=== PATIENT | female | born 1990 | race Caucasian/White ===

== ENCOUNTER 2018-03-04 20:12 | Emergency (ER) | payer SELFPAY ==
--- NOTE | 2018-03-04 20:32 | EDM.PDOC ---
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 States she has saturated a pad within the last 1 hour. Has abdominal cramping and nausea. Denies any fever, chills, chest pain or shortness of breath. Denies any diarrhea, constipation or dysuria. She states she is 11 weeks with last menstrual period being 12/07/2017. , P: 0. She currently see Ailyn at [facility] for care. Review of systems: As per history of present illness and below otherwise all systems reviewed and negative. Past medical history: As per history of present illness and as reviewed below otherwise noncontributory. Surgical history: As per history of present illness and as reviewed below otherwise noncontributory. Social history: No reported history of drug or alcohol abuse. Family history: As per history of present illness and as reviewed below otherwise noncontributory. Physical exam: General: HEENT: Atraumatic, normocephalic, pupils equal and reactive bilaterally, negative for conjunctival pallor or scleral icterus, mucous membranes moist, throat clear, neck supple, nontender, trachea midline. No drooling or trismus noted. No meningeal signs Lungs: Clear to auscultation, breath sounds equal bilaterally, chest nontender. Heart: S1S2, regular rate and rhythm without overt murmur Abdomen: Soft, nondistended, nontender. Negative for masses or hepatosplenomegaly. Negative for costovertebral tenderness. Pelvis: Stable nontender. Genitourinary: Deferred. Rectal: Deferred. Skin: Intact, warm, dry. No lesions or rashes noted. Extremities: Atraumatic, negative for cords or calf pain. Neurovascular unremarkable. Neuro: Awake, alert, oriented. Cranial nerves II through XII unremarkable. Cerebellum unremarkable. Motor and sensory unremarkable throughout. Exam nonfocal. Notes: Ultrasound shows a single viable intrauterine , regular cardiac rate of [address] [place] [address]. + blood type. All lab work is unremarkable with the exception of a urinary tract infection which I will place her on Macrobid. Urine culture was added. She is requesting something for her nausea. I will give her a limited amount of Zofran. Encouraged her to call her primary care provider tomorrow to inform her of her emergency room visit. She does need a repeat quantitative hCG in 2 days from now. Patient is aware and agreeable to plan of care. Diagnostics: CBC, CMP, AB/Rh, OB first trimester ultrasound, UA, quantitative hCG Therapeutics: Macrobid, Zofran Impression: Threatened miscarriage UTI Plan: 1. Pelvic rest (no tampons, no sex, nothing in the vagina...) until cleared by your OBGYN. 2. Tylenol as needed for pain. Please take the antibiotic for UTI. 3. Please repeat your Quantitative HCG on 03/06/2018 (results will be sent to Mariya Robertson). 4. Please call Jonnathan in the morning to arrange an appointment for re- evaluation tomorrow. Return to the ED as needed and as discussed. Definitive disposition and diagnosis as appropriate pending reevaluation and review of above. 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 ED EXAM, GI/ABD - Physical Exam Exam: See Below (See dictation) Course - Vital Signs Last Recorded V/S: Last Vital Signs Temp 98.1 F 03/04/18 20:15 Pulse 107 H 03/04/18 21:36 Resp 16 03/04/18 21:36 BP 126/84 03/04/18 21:36 Pulse Ox 98 03/04/18 21:36 - Orders/Labs/Meds Orders: Active Orders 24 hr Category Date Time Status OB Transvaginal [US] Stat Exams 03/04/18 20:38 Taken UA W/MICROSCOPIC [URIN] Stat Lab 03/04/18 20:25 Ordered Labs: Laboratory Tests 03/04/18 03/04/18 03/04/18 Range/Units 20:25 20:43 20:43 WBC 12.53 H (4.0-11.0) K/uL RBC 4.68 (4.30-5.90) M/uL Hgb 12.8 (12.0-16.0) g/dL Hct 37.6 (36.0-46.0) % MCV 80.3 (80.0-98.0) fL MCH 27.4 (27.0-32.0) pg MCHC 34.0 (31.0-37.0) g/dL RDW Std Deviation 45.9 (28.0-62.0) fl RDW Coeff of David 16 H (11.0-15.0) % Plt Count 421 H (150-400) K/uL MPV 9.30 (7.40-12.00) fL Neut % (Auto) 68.2 (48.0-80.0) % Lymph % (Auto) 18.5 (16.0-40.0) % Gall[place] % (Auto) 9.0 (0.0-15.0) % Eos % (Auto) 3.8 (0.0-7.0) % Baso % (Auto) 0.5 (0.0-1.5) % Neut # (Auto) 8.5 H (1.4-5.7) K/uL Lymph # (Auto) 2.3 (0.6-2.4) K/uL Gallia # (Auto) 1.1 H (0.0-0.8) K/uL Eos # (Auto) 0.5 (0.0-0.7) K/uL Baso # (Auto) 0.1 (0.0-0.1) K/uL Nucleated RBC % 0.0 /100WBC Nucleated RBCs # 0 K/uL Sodium 135 L (136-145) mmol/L Potassium 3.3 L (3.5-5.1) mmol/L Chloride 103 (98-107) mmol/L Carbon Dioxide 23.5 (21.0-32.0) mmol/L BUN 4 L (7.0-18.0) mg/dL Creatinine 0.7 (0.6-1.0) mg/dL Est Cr Clr Drug Dosing 111.01 mL/min Estimated GFR (MDRD) > 60.0 ml/min Glucose 99 (74-106) mg/dL Calcium 9.1 (8.5-10.1) mg/dL Total Bilirubin 0.2 (0.2-1.0) mg/dL AST 19 (15-37) IU/L ALT 24 (14-63) IU/L Alkaline Phosphatase 50 (46-116) U/L Total Protein 7.8 (6.4-8.2) g/dL Albumin 3.6 (3.4-5.0) g/dL Globulin 4.2 H (2.0-3.5) g/dL Albumin/Globulin Ratio 0.9 L (1.3-2.8) HCG, Quant 85842.0 mIU/mL Urine Color YELLOW Urine Appearance SLT CLOUDY Urine pH 5.5 (5.0-8.0) Ur Specific [place] >= 1.030 (1.001-1.035) Urine Protein NEGATIVE (NEGATIVE) mg/dL Urine Glucose (UA) NEGATIVE (NEGATIVE) mg/dL Urine Ketones NEGATIVE (NEGATIVE) mg/dL Urine Occult Blood MODERATE (NEGATIVE) Urine Nitrite NEGATIVE (NEGATIVE) Urine Bilirubin NEGATIVE (NEGATIVE) Urine Urobilinogen 0.2 (<2.0) EU/dL Ur Leukocyte Esterase NEGATIVE (NEGATIVE) Urine RBC 3-6 (0-2/HPF) Urine WBC 10-15 (0-5/HPF) Ur Epithelial Cells MANY (NONE-FEW) Urine Bacteria 1+ H (NEGATIVE) Urine Mucus HEAVY (NONE-MOD) Blood Type 03/04/18 Range/Units 20:43 WBC (4.0-11.0) K/uL RBC (4.30-5.90) M/uL Hgb (12.0-16.0) g/dL Hct (36.0-46.0) % MCV (80.0-98.0) fL MCH (27.0-32.0) pg MCHC (31.0-37.0) g/dL RDW Std Deviation (28.0-62.0) fl RDW Coeff of David (11.0-15.0) % Plt Count (150-400) K/uL MPV (7.40-12.00) fL Neut % (Auto) (48.0-80.0) % Lymph % (Auto) (16.0-40.0) % Gall[place] % (Auto) (0.0-15.0) % Eos % (Auto) (0.0-7.0) % Baso % (Auto) (0.0-1.5) % Neut # (Auto) (1.4-5.7) K/uL Lymph # (Auto) (0.6-2.4) K/uL Gall[place] # (Auto) (0.0-0.8) K/uL Eos # (Auto) (0.0-0.7) K/uL Baso # (Auto) (0.0-0.1) K/uL Nucleated RBC % /100WBC Nucleated RBCs # K/uL Sodium (136-145) mmol/L Potassium (3.5-5.1) mmol/L Chloride (98-107) mmol/L Carbon Dioxide (21.0-32.0) mmol/L BUN (7.0-18.0) mg/dL Creatinine (0.6-1.0) mg/dL Est Cr Clr Drug Dosing mL/min Estimated GFR (MDRD) ml/min Glucose (74-106) mg/dL Calcium (8.5-10.1) mg/dL Total Bilirubin (0.2-1.0) mg/dL AST (15-37) IU/L ALT (14-63) IU/L Alkaline Phosphatase (46-116) U/L Total Protein (6.4-8.2) g/dL Albumin (3.4-5.0) g/dL Globulin (2.0-3.5) g/dL Albumin/Globulin Ratio (1.3-2.8) HCG, Quant mIU/mL Urine Color Urine Appearance Urine pH (5.0-8.0) Ur Specific [place] (1.001-1.035) Urine Protein (NEGATIVE) mg/dL Urine Glucose (UA) (NEGATIVE) mg/dL Urine Ketones (NEGATIVE) mg/dL Urine Occult Blood (NEGATIVE) Urine Nitrite (NEGATIVE) Urine Bilirubin (NEGATIVE) Urine Urobilinogen (<2.0) EU/dL Ur Leukocyte Esterase (NEGATIVE) Urine RBC (0-2/HPF) Urine WBC (0-5/HPF) Ur Epithelial Cells (NONE-FEW) Urine Bacteria (NEGATIVE) Urine Mucus (NONE-MOD) Blood Type A POSITIVE Departure - Departure Time of Disposition: 21:58 Disposition: Home, Self-Care 01 Clinical Impression: Threatened miscarriage Urinary tract infection Qualifiers: Urinary tract infection type: acute cystitis Hematuria presence: with hematuria Qualified Code(s): N30.01 - Acute cystitis with hematuria - Discharge Information *PRESCRIPTION DRUG MONITORING PROGRAM REVIEWED*: No *COPY OF PRESCRIPTION DRUG MONITORING REPORT IN PATIENT CAMILO: No Instructions: Vaginal Bleeding During , First Trimester, [id number] , Urinary Tract Infection, Adult, [id number] Referrals: Nina Spivey PA [Primary Care Provider] - Forms: ED Department Discharge Additional Instructions: The following information is given to patients seen in the emergency department who are being discharged to home. This information is to outline your options for follow-up care. We provide all patients seen in our emergency department with a follow-up referral. The need for follow-up, as well as the timing and circumstances, are variable depending upon the specifics of your emergency department visit. If you don't have a primary care physician on staff, we will provide you with a referral. We always advise you to contact your personal physician following an emergency department visit to inform them of the circumstance of the visit and for follow-up with them and/or the need for any referrals to a consulting specialist. The emergency department will also refer you to a specialist when appropriate. This referral assures that you have the opportunity for follow-up care with a specialist. All of these measure are taken in an effort to provide you with optimal care, which includes your follow-up. Under all circumstances we always encourage you to contact your private physician who remains a resource for coordinating your care. When calling for follow-up care, please make the office aware that this follow-up is from your recent emergency room visit. If for any reason you are refused follow-up, please contact the [facility] Emergency Department at and asked to speak to the emergency department charge nurse. [facility] [address] [place] [id number] 1. Pelvic rest (no tampons, no sex, nothing in the vagina...) until cleared by your OBGYN. 2. Tylenol as needed for pain. Please take the antibiotic for UTI. 3. Please repeat your Quantitative HCG on 03/06/2018 (results will be sent to Mariya Robertson). 4. Please call Jonnathan in the morning to arrange an appointment for re- evaluation tomorrow. Return to the ED as needed and as discussed. - My Orders Last 24 Hours: My Active Orders 03/04/18 20:25 UA W/MICROSCOPIC [URIN] Stat 03/04/18 20:38 OB Transvaginal [US] Stat - Assessment/Plan Last 24 Hours: My Active Orders 03/04/18 20:25 UA W/MICROSCOPIC [URIN] Stat 03/04/18 20:38 OB Transvaginal [US] Stat
[2018-03-04 21:33] LABS: CHLORIDE,CL 103 mmol/L (98-107); SODIUM,NA 135 mmol/L (136-145)
[2018-03-04] MEDS ORDERED: Nitrofurantoin Monohydrate/Macrocrystalline 100 MG Cap PO ONE (22:00)
[2018-03-04] MEDS ORDERED: Ondansetron 4 MG Tab.DIS PO ONE (22:00)
--- NOTE | 2018-03-05 09:47 | US ---
EXAM DATE: 03/04/18 PATIENT'S AGE: 27 Patient: JENNIE WEISS Facility: [place], [place] Site . Site : 1990 Study: US OB Pelvis [id number]/23/2018 9:23:07 PM Ordering Physician: Doctor Tran Final Report: INDICATION: First trimester with vaginal bleeding. TECHNIQUE: Ultrasound OB pelvis transvaginal. Real-time goldman-scale imaging of the pelvis was performed. COMPARISON: None FINDINGS: Sonographic imaging demonstrates a single living intrauterine gestation. The embryo demonstrates a regular cardiac rate measuring 167 beats per minute. The embryo`s crown rump length measurement of 4.09 cm corresponds to a gestational age of 11 weeks 0 days with a sonographic due date of September 23, 2018. There is a normal appearing yolk sac. There are no gross abnormalities noted within the embryo at this early state of development. The placenta has not yet developed. There is no sign of perigestational hemorrhage. There is a prominent 4 cm fibroid in the posterior wall of the uterus. The ovaries are of normal size. There are no suspicious fluid collections noted in the cul-de-sac. IMPRESSION: Single viable intrauterine with an estimated ultrasound age of 11 weeks 0 days. Prominent 4 cm fibroid is in the posterior wall of the uterus. No other abnormalities seen. Dictated by Tc Jennings MD @ Mar 04 2018 9:31PM (Electronic Signature) Report Signed by Proxy. NURY
== END 2018-03-04 22:16 | disposition home or self-care (01) ==
LOC: MW.ED 20:12
DX: O20.0 Threatened abortion (principal); O23.41 Unspecified infection of urinary tract in pregnancy, first trimester; Z3A.11 11 weeks gestation of pregnancy
CPT/HCPCS: 36415; 76817; 80053; 81001; 84702; 85025; 86900; 86901; 87086; 99284; A9270; 99283

== ENCOUNTER 2018-09-15 02:47 | Inpatient (IN) | payer OTHER ==
[2018-09-15] MEDS ORDERED: Sodium Chloride 0.9% 2.5 ML Syringe FLUSH PRN (03:20)
[2018-09-15] MEDS ORDERED: Terbutaline 1 MG/ML SDV SUBCUT PRN (03:20)
[2018-09-15] MEDS ORDERED: Carboprost Tromethamine 250 MCG/1 ML Amp IM PRN (03:20)
[2018-09-15] MEDS ORDERED: Lidocaine 1% 50 ML MDV INJECT PRN (03:20)
[2018-09-15] MEDS ORDERED: Misoprostol 25 MCG (1/4 of 100 MCG) Tab PO PRN (03:20)
[2018-09-15] MEDS ORDERED: Nalbuphine 10 MG/1 ML Vial IVPUSH PRN (03:20)
[2018-09-15] MEDS ORDERED: Sodium Chloride 0.9% 10 ML Syringe FLUSH PRN (03:20)
[2018-09-15] MEDS ORDERED: Misoprostol 200 MCG Tab PO PRN (03:20)
[2018-09-15] MEDS ORDERED: Tranexamic Acid 1,000 MG in Sodium Chloride 0.9% 100 ML IV PRN (03:20)
[2018-09-15] MEDS ORDERED: Water For Irrigation,Sterile 1,000 ML Container IRR PRN (03:20)
[2018-09-15] MEDS ORDERED: Methylergonovine 0.2 MG/1 ML Amp IM PRN (03:20)
[2018-09-15] MEDS ORDERED: Misoprostol 25 MCG (1/4 of 100 MCG) Tab VAG PRN (03:20)
[2018-09-15] MEDS ORDERED: Ondansetron 4 MG/2 ML SDV IVPUSH PRN (03:20)
[2018-09-15] MEDS ORDERED: Butorphanol 1 MG/ML SDV IVPUSH PRN (03:20)
[2018-09-15] MEDS ORDERED: Oxytocin/0.9 % Sodium Chloride 30 UNIT/500 ML BAG IV SCH (03:30)
[2018-09-15] MEDS: Lactated Ringers 1,000 ML IV SCH ×2 (03:49→16:24)
[2018-09-15] MEDS ORDERED: Ampicillin 2 GM in Sodium Chloride 0.9% 100 ML IV ONE (04:00)
[2018-09-15] MEDS: Ampicillin 1 GM in Sodium Chloride 0.9% 50 ML IV SCH ×3 (08:20→16:24)
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
[2018-09-15] MEDS ORDERED: Lidocaine HCl/EPINEPHrine 5 ML IJ ONE (09:17)
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
[2018-09-15] MEDS ORDERED: Bisacodyl 10 MG Supp RECTAL PRN (17:00)
[2018-09-15] MEDS ORDERED: Benzocaine/Menthol 20%-0.5% Spray 78 GM Cannister TOP PRN (17:00)
[2018-09-15] MEDS ORDERED: Acetaminophen 500 MG Tab PO PRN ×2 (17:00)
[2018-09-15] MEDS ORDERED: Lanolin 100% Cream 7 GM Tube TOP PRN (17:00)
[2018-09-15] MEDS ORDERED: Docusate Sodium 100 MG Cap PO PRN (17:00)
[2018-09-15] MEDS ORDERED: Ibuprofen 400 MG Tab PO PRN (17:00)
[2018-09-15] MEDS ORDERED: oxyCODONE 5 MG Tab PO PRN (17:00)
[2018-09-15] MEDS ORDERED: Ibuprofen 800 MG Tab PO PRN (17:00)
[2018-09-15] MEDS ORDERED: Witch Hazel Medicated Pads 40/Jar TOP PRN (17:00)
--- NOTE | 2018-09-15 17:06 | PCM.DEL ---
L & D Note - General Info Date of Service: 09/15/18 Mother's Due Date: 09/21/18 - Delivery Note Cervical Ripening Method: Misoprostil Delivery Outcome: Livebirth Delivery Method: Spontaneous Vaginal Delivery-Single Delivery Mode: Spontaneous Presentation: Vertex Nuchal Cord: Present, Reduced (x3) Anesthesia Type: Epidural Amniotic Fluid Description: Clear Episiotomy Type: None Laceration: 2nd Degree, Perineal Suture type: Vicryl Suture size: 3-0 Placenta: Intact, Spontaneous Cord: 3 Vessels Estimated Blood Loss: 200 Resuscitation Needed: No Score 1 min: 9 Score 5 min: 9 Second Stage Interventions: Reports: Pushing, Pulls Own Legs Back Delivery Comments (Free Text/Narrative):: of healthy boy (José Miguel), head delivered with great pushing, nuchal x3 reduced over head, shoulders and body followed easily. Infant with spont cry placed on mother abd with RN at bs for evaluation. Delayed cord clamping. Pitocin to IVF. Cord clamped and cut by mother. Cord blood collected. Placenta delivered grossly intact 3VC. Inspection noted 2nd deg lac that was repaired with 3-0 susan in the usual manor. EBL 200cc. APGARS 9/9, Wt: 7lb 14oz. Mother and baby left in stable condition for recovery. Induction Criteria - Fields Score Fields Score Dilation: > 5 cm Fields Score Effacement: >80% Fields Score Infant's Station: -2 Fields Score Consistency: Soft Fields Score Cervix Position: Anterior Fields Score Total: 11 Fields Score Presenting Part: Reports: Cephalic - Induction Gestational Age >/= 39 wks: Yes Estimated Pelvis: Reports: Adequate Reassuring Monitoring Strip: Yes Absence of Tachy Systole: Yes - General Info Date of Service: 09/15/18 Admission Dx/Problem (Free Text): Patient Status Order with Admit Dx/Problem 09/15/18 03:20 Patient Status [ADT] Routine Admission Diagnosis/Problem Admission Diagnosis/Problem 09/15/18 08:46 28yo EDC 09/21/2018 39 1/7wks, O+, RI, GBS pos. IOL term (Pritesh Valdez) Functional Status: Reports: Pain Controlled - Review of Systems General: Reports: No Symptoms HEENT: Reports: No Symptoms Pulmonary: Reports: No Symptoms Cardiovascular: Reports: No Symptoms Gastrointestinal: Reports: No Symptoms Genitourinary: Reports: No Symptoms Musculoskeletal: Reports: No Symptoms Skin: Reports: No Symptoms Neurological: Reports: No Symptoms Psychiatric: Reports: No Symptoms - Patient Data Vitals - Most Recent: Last Vital Signs Temp Pulse 95 09/15/18 11:22 Resp 20 09/15/18 11:22 BP 124/89 09/15/18 11:22 Pulse Ox 95 09/15/18 11:22 Weight - Most Recent: 122.016 kg Lab Results Last 24 Hours: Laboratory Results - last 24 hr 09/15/18 09/15/18 Range/Units 03:35 03:35 WBC 14.47 H (4.0-11.0) K/uL RBC 4.46 (4.30-5.90) M/uL Hgb 12.6 (12.0-16.0) g/dL Hct 37.1 (36.0-46.0) % MCV 83.2 (80.0-98.0) fL MCH 28.3 (27.0-32.0) pg MCHC 34.0 (31.0-37.0) g/dL RDW Std Deviation 41.6 (28.0-62.0) fl RDW Coeff of David 14 (11.0-15.0) % Plt Count 365 (150-400) K/uL MPV 8.90 (7.40-12.00) fL Nucleated RBC % 0.0 /100WBC Nucleated RBCs # 0 K/uL Blood Type A POSITIVE Antibody Screen NEGATIVE Med Orders - Current: Current Medications Discontinued Medications Butorphanol Tartrate (Stadol) 1 mg IVPUSH Q1H PRN PRN Reason: Pain Carboprost Tromethamine (Hemabate Ds) 250 mcg IM ASDIRECTED PRN PRN Reason: Post Hemorrhage Ampicillin Sodium 2 gm/ Sodium (Chloride) 100 mls @ 200 mls/hr IV ONETIME ONE Stop: 09/15/18 04:29 Last Admin: 09/15/18 03:49 Dose: 200 mls/hr Ampicillin Sodium 1 gm/ Sodium (Chloride) 50 mls @ 100 mls/hr IV Q4H [facility] Last Admin: 09/15/18 16:24 Dose: 100 mls/hr Lactated Ringer's (Ringers, Lactated) 1,000 mls @ 150 mls/hr IV ASDIRECTED [facility] Last Admin: 09/15/18 16:24 Dose: 150 mls/hr Oxytocin/Sodium Chloride (Oxytocin 30 Unit/500 Ml-Ns) 30 unit in 500 mls @ 500 mls/hr IV TITRATE [facility] Tranexamic Acid 1,000 mg/ (Sodium Chloride) 110 mls @ 660 mls/hr IV ONETIME PRN PRN Reason: Bleeding Fentanyl/Bupivacaine HCl (Jorqzbqz-Vupgb-Ci 2 Mcg/Ml-0.125%) Confirm Administered Dose 100 mls @ as directed .ROUTE .STK-MED ONE Stop: 09/15/18 09:17 Lidocaine HCl (Xylocaine-Mpf 1%) Confirm Administered Dose 5 mls @ as directed .ROUTE .STK-MED ONE Stop: 09/15/18 16:41 Lidocaine HCl (Xylocaine 1%) 50 ml INJECT ONETIME PRN PRN Reason: Laceration repair Lidocaine/Epinephrine (Lidocaine 1.5%-Epi 1:200,000) Confirm Administered Dose 5 ml IJ .STK-MED ONE Stop: 09/15/18 09:18 Methylergonovine Maleate (Methergine) 0.2 mg IM ASDIRECTED PRN PRN Reason: Post Hemorrhage Misoprostol (Cytotec) 200 mcg PO ONETIME PRN PRN Reason: Post Hemorrhage Misoprostol (Cytotec) 25 mcg VAG Q4H PRN PRN Reason: Cervical Ripening Last Admin: 09/15/18 03:53 Dose: 25 mcg Misoprostol (Cytotec) 25 mcg PO Q4H PRN PRN Reason: Cervical Ripening Last Admin: 09/15/18 03:57 Dose: 25 mcg Nalbuphine HCl (Nubain) 10 mg IVPUSH Q1H PRN PRN Reason: Pain (severe 7-10) Ondansetron HCl (Zofran) 4 mg IVPUSH Q6H PRN PRN Reason: Nausea/Vomiting Sodium Chloride (Saline Flush) 10 ml FLUSH ASDIRECTED PRN PRN Reason: Keep Vein Open Sodium Chloride (Saline Flush) 2.5 ml FLUSH ASDIRECTED PRN PRN Reason: Keep Vein Open Sterile Water (Sterile Water For Irrigation) 1,000 ml IRR ASDIRECTED PRN PRN Reason: delivery Terbutaline Sulfate (Brethine) 0.25 mg SUBCUT ASDIRECTED PRN PRN Reason: Tacysystole - Exam General: Alert, Oriented, Cooperative, No Acute Distress Lungs: Normal Respiratory Effort (Female) Exam: Normal External Exam, Normal Bimanual Exam, Vaginal Bleeding, Vaginal Tears (repaired). No: Cervical Lesions Back Exam: Normal Inspection, Full Range of Motion Extremities: Normal Inspection, Normal Range of Motion, Non-Tender, No Pedal Edema, Normal Capillary Refill Skin: Warm, Dry, Intact Wound/Incisions: Healing Well Neurological: No New Focal Deficit, Normal Speech, Normal Tone, Strength Equal Bilateral Psy/Mental Status: Alert, Normal Affect, Normal Mood - Problem List & Annotations (1) Supervision of normal IUP (intrauterine ) in primigravida SNOMED Code(s): 42062597, 452025208, 304330946, 748060221 Code(s): Z34.00 - ENCNTR FOR SUPRVSN OF NORMAL FIRST , UNSP TRIMESTER Status: Acute Priority: High Current Visit: Yes Qualifiers: Trimester: third trimester Qualified Code(s): Z34.03 - Encounter for supervision of normal first , third trimester (2) GBS (group B Streptococcus carrier), +RV culture, currently SNOMED Code(s): 8850497929405, 396051027, 8470643770526 Code(s): O99.820 - STREPTOCOCCUS B CARRIER STATE COMPLICATING Status: Acute Priority: High Current Visit: Yes (3) (normal spontaneous vaginal delivery) SNOMED Code(s): 36965936 Code(s): O80 - ENCOUNTER FOR FULL-TERM UNCOMPLICATED DELIVERY Status: Acute Priority: High Current Visit: Yes - Problem List Review Problem List Initiated/Reviewed/Updated: Yes - My Orders Last 24 Hours: My Active Orders 09/15/18 17:00 May Shower [RC] ASDIRECTED Up ad Jane [RC] ASDIRECTED Vital Signs [RC] PER UNIT ROUTINE Acetaminophen [Tylenol Extra Strength] 1,000 mg PO Q4H PRN Acetaminophen [Tylenol Extra Strength] 500 mg PO Q4H PRN Benzocaine/Menthol [Dermoplast Pain Relief 20%-0.5% [place]] 78 gm TOP ASDIRECTED PRN Bisacodyl [Dulcolax] 10 mg RECTAL ONETIME PRN Docusate Sodium [Colace] 100 mg PO BID PRN Ibuprofen [Motrin] 400 mg PO Q4H PRN Ibuprofen [Motrin] 800 mg PO Q6H PRN Lanolin [Lansinoh HPA] See Dose Instructions TOP ASDIRECTED PRN Witch Kristie [Tucks] 1 pad TOP ASDIRECTED PRN oxyCODONE 5 mg PO Q2H PRN Assess Lochia [WOMSER] Per Unit Routine Assess Uterine Involution [WOMSER] Per Unit Routine Peripheral IV Discontinue [OM.PC] Routine Resuscitation Status Routine 09/15/18 17:01 Patient Status [ADT] Routine 09/15/18 Dinner Regular Diet [DIET] - Plan Plan:: IOL A: 28yo EDC 09/21/2018 39 1/7wks, O+, RI, GBS pos. IOL term (Pritesh Valdez) VE 5- 6/80/-2 soft post. SROM clear P: Admit, Amp for GBS pos, epidural prn, anticipate , Dr Santizo updated. Delivery A: of male (José Miguel) APGARS 9/9, Wt: 7lb 14oz, 2nd degree lac with repair. EBL 200cc. Stable condition P: Routine pp plan of care.
--- NOTE | 2018-09-15 20:19 | PCM48HPAN ---
Post Anesthesia Note - EVALUATION WITHIN 48HRS OF ANESTHETIC Vital Signs in Normal Range: Yes Patient Participated in Evaluation: Yes Respiratory Function Stable: Yes Airway Patent: Yes Cardiovascular Function Stable: Yes Hydration Status Stable: Yes Pain Control Satisfactory: Yes Nausea and Vomiting Control Satisfactory: Yes Mental Status Recovered: Yes Pulse Rate: 95 Resp Rate: 20 Blood Pressure: 124/89 - COMMENTS/OBSERVATIONS Free Text/Narrative:: delivered earlier this afternoon under excellent epidural analgesia. No anesthetic complications noted.
--- NOTE | 2018-09-16 08:08 | PCM.DCSUM1 ---
Discharge Summary - Hospital Course Free Text/Narrative:: Discharge home with . Follow up in 6 weeks for post visit. Diagnosis: Stroke: No - Discharge Data Discharge Date: 09/16/18 Discharge Disposition: Home, Self-Care 01 Condition: Good - Discharge Diagnosis/Problem(s) (1) Supervision of normal IUP (intrauterine ) in primigravida SNOMED Code(s): 62289413, 353450855, 456851715, 274005564 ICD Code: Z34.00 - ENCNTR FOR SUPRVSN OF NORMAL FIRST , UNSP TRIMESTER Status: Acute Priority: High Current Visit: Yes Qualifiers: Trimester: third trimester Qualified Code(s): Z34.03 - Encounter for supervision of normal first , third trimester (2) GBS (group B Streptococcus carrier), +RV culture, currently SNOMED Code(s): 0982148051972, 824346408, 8178228674137 ICD Code: O99.820 - STREPTOCOCCUS B CARRIER STATE COMPLICATING Status: Acute Priority: High Current Visit: Yes (3) (normal spontaneous vaginal delivery) SNOMED Code(s): 49301782 ICD Code: O80 - ENCOUNTER FOR FULL-TERM UNCOMPLICATED DELIVERY Status: Acute Priority: High Current Visit: Yes - Patient Instructions Diet: Usual Diet as Tolerated Activity: As Tolerated, No Strenuous Activities, Rest and Relax Today Driving: May Drive Today Showering/Bathing: May Shower Other/Special Instructions: Discharge home with . Follow up in 6 weeks for post visit. - Discharge Plan *PRESCRIPTION DRUG MONITORING PROGRAM REVIEWED*: Not Applicable *COPY OF PRESCRIPTION DRUG MONITORING REPORT IN PATIENT CAMILO: Not Applicable Home Medications: Home Meds PNV95/Ferrous Fumarate/FA [ Tablet] 1 tab PO DAILY 03/04/18 [History] Ascorbic Acid [Vitamin C] 1,000 mg PO DAILY 08/10/18 [History] Oxygen Therapy Mode: Room Air - Discharge Summary/Plan Comment DC Time >30 min.: Yes - General Info Date of Service: 09/16/18 Admission Dx/Problem (Free Text: Patient Status Order with Admit Dx/Problem 09/15/18 03:20 Patient Status [ADT] Routine Admission Diagnosis/Problem Admission Diagnosis/Problem 09/15/18 08:46 28yo EDC 09/21/2018 39 1/7wks, O+, RI, GBS pos. IOL term ([place]) Functional Status: Reports: Pain Controlled, Tolerating Diet, Ambulating, Urinating - Review of Systems General: Reports: No Symptoms HEENT: Reports: No Symptoms Pulmonary: Reports: No Symptoms Cardiovascular: Reports: No Symptoms Gastrointestinal: Reports: No Symptoms Genitourinary: Reports: No Symptoms Musculoskeletal: Reports: No Symptoms Skin: Reports: No Symptoms Neurological: Reports: No Symptoms Psychiatric: Reports: No Symptoms - Patient Data Vitals - Most Recent: Last Vital Signs Temp 35.7 C 09/16/18 05:45 Pulse 105 H 09/16/18 05:45 Resp 17 09/16/18 05:45 BP 111/69 09/16/18 05:45 Pulse Ox 93 L 09/16/18 05:45 Weight - Most Recent: 122.016 kg Med Orders - Current: Current Medications Acetaminophen (Tylenol Extra Strength) 500 mg PO Q4H PRN PRN Reason: Pain Acetaminophen (Tylenol Extra Strength) 1,000 mg PO Q4H PRN PRN Reason: Pain Benzocaine/Menthol (Dermoplast Pain Relief 20%-0.5% [place]) 78 gm TOP ASDIRECTED PRN PRN Reason: Perineal Comfort Measure Last Admin: 09/15/18 20:21 Dose: 1 canister Bisacodyl (Dulcolax) 10 mg RECTAL ONETIME PRN PRN Reason: Constipation Docusate Sodium (Colace) 100 mg PO BID PRN PRN Reason: Constipation Emollient Ointment (Lansinoh Hpa) 0 gm TOP ASDIRECTED PRN PRN Reason: Sore Nipples Ibuprofen (Motrin) 400 mg PO Q4H PRN PRN Reason: Pain Ibuprofen (Motrin) 800 mg PO Q6H PRN PRN Reason: Pain Oxycodone HCl (Oxycodone) 5 mg PO Q2H PRN PRN Reason: Pain Witch Kristie (Tucks) 1 pad TOP ASDIRECTED PRN PRN Reason: comfort care Last Admin: 09/15/18 20:21 Dose: 1 tub Discontinued Medications Butorphanol Tartrate (Stadol) 1 mg IVPUSH Q1H PRN PRN Reason: Pain Carboprost Tromethamine (Hemabate Ds) 250 mcg IM ASDIRECTED PRN PRN Reason: Post Hemorrhage Ampicillin Sodium 2 gm/ Sodium (Chloride) 100 mls @ 200 mls/hr IV ONETIME ONE Stop: 09/15/18 04:29 Last Admin: 09/15/18 03:49 Dose: 200 mls/hr Ampicillin Sodium 1 gm/ Sodium (Chloride) 50 mls @ 100 mls/hr IV Q4H [facility] Last Admin: 09/15/18 16:24 Dose: 100 mls/hr Lactated Ringer's (Ringers, Lactated) 1,000 mls @ 150 mls/hr IV ASDIRECTED [facility] Last Admin: 09/15/18 16:24 Dose: 150 mls/hr Oxytocin/Sodium Chloride (Oxytocin 30 Unit/500 Ml-Ns) 30 unit in 500 mls @ 500 mls/hr IV TITRATE [facility] Tranexamic Acid 1,000 mg/ (Sodium Chloride) 110 mls @ 660 mls/hr IV ONETIME PRN PRN Reason: Bleeding Fentanyl/Bupivacaine HCl (Taxchpgq-Hsiam-Kn 2 Mcg/Ml-0.125%) Confirm Administered Dose 100 mls @ as directed .ROUTE .STK-MED ONE Stop: 09/15/18 09:17 Last Admin: 09/16/18 06:29 Dose: Not Given Lidocaine HCl (Xylocaine-Mpf 1%) Confirm Administered Dose 5 mls @ as directed .ROUTE .STK-MED ONE Stop: 09/15/18 16:41 Lidocaine HCl (Xylocaine 1%) 50 ml INJECT ONETIME PRN PRN Reason: Laceration repair Lidocaine/Epinephrine (Lidocaine 1.5%-Epi 1:200,000) Confirm Administered Dose 5 ml IJ .STK-MED ONE Stop: 09/15/18 09:18 Last Admin: 09/16/18 06:29 Dose: Not Given Methylergonovine Maleate (Methergine) 0.2 mg IM ASDIRECTED PRN PRN Reason: Post Hemorrhage Misoprostol (Cytotec) 200 mcg PO ONETIME PRN PRN Reason: Post Hemorrhage Misoprostol (Cytotec) 25 mcg VAG Q4H PRN PRN Reason: Cervical Ripening Last Admin: 09/15/18 03:53 Dose: 25 mcg Misoprostol (Cytotec) 25 mcg PO Q4H PRN PRN Reason: Cervical Ripening Last Admin: 09/15/18 03:57 Dose: 25 mcg Nalbuphine HCl (Nubain) 10 mg IVPUSH Q1H PRN PRN Reason: Pain (severe 7-10) Ondansetron HCl (Zofran) 4 mg IVPUSH Q6H PRN PRN Reason: Nausea/Vomiting Sodium Chloride (Saline Flush) 10 ml FLUSH ASDIRECTED PRN PRN Reason: Keep Vein Open Sodium Chloride (Saline Flush) 2.5 ml FLUSH ASDIRECTED PRN PRN Reason: Keep Vein Open Sterile Water (Sterile Water For Irrigation) 1,000 ml IRR ASDIRECTED PRN PRN Reason: delivery Terbutaline Sulfate (Brethine) 0.25 mg SUBCUT ASDIRECTED PRN PRN Reason: Tacysystole - Exam General: Reports: Alert, Oriented, Cooperative, No Acute Distress Lungs: Reports: Clear to Auscultation, Normal Respiratory Effort. Denies: Decreased Breath Sounds Cardiovascular: Reports: Regular Rate, Regular Rhythm, No Murmurs. Denies: Irregular Rhythm GI/Abdominal Exam: Soft, Non-Tender (Female) Exam: Deferred, Vaginal Bleeding. No: Vaginal Lesions, Vaginal Tears Rectal (Female) Exam: Deferred Back Exam: Reports: Normal Inspection, Full Range of Motion Extremities: Normal Inspection, Normal Range of Motion, Non-Tender, No Pedal Edema Skin: Reports: Warm, Dry, Intact Neurological: Reports: No New Focal Deficit, Normal Gait, Normal Speech, Normal Tone, Strength Equal Bilateral Psy/Mental Status: Reports: Alert, Normal Affect, Normal Mood
== END 2018-09-16 19:15 | disposition home or self-care (01) | DRG 807 ==
LOC: MW.OBCHECK 02:47 → MW.OB 02:51 → MW.OBCHECK 02:57 → MW.OB 03:26 → OBSVTOIN 16:36
PROVIDERS: ADMIT Obstetrics & Gynecology; ATTEND Obstetrics & Gynecology
PROC: 0KQM0ZZ Repair Perineum Muscle, Open Approach (ICD-10-PCS; principal; 2018-09-15)
PROC: 10E0XZZ Delivery of Products of Conception, External Approach (ICD-10-PCS; principal; 2018-09-15)
PROC: 3E0P7VZ Introduction of Hormone into Female Reproductive, Via Natural or Artificial Opening (ICD-10-PCS; principal; 2018-09-15)
PROC: 6A550ZT Pheresis of Cord Blood Stem Cells, Single (ICD-10-PCS; principal; 2018-09-15)
PROC: 00HU33Z Insertion of Infusion Device into Spinal Canal, Percutaneous Approach (ICD-10-PCS; 2018-09-15)
PROC: 3E0R3BZ Introduction of Anesthetic Agent into Spinal Canal, Percutaneous Approach (ICD-10-PCS; 2018-09-15)
DX: O99.824 Streptococcus B carrier state complicating childbirth (principal); Z37.0 Single live birth; O99.284 Endocrine, nutritional and metabolic diseases complicating childbirth; E03.9 Hypothyroidism, unspecified; O69.81X0 Labor and delivery complicated by cord around neck, without compression, not applicable or unspecified; O70.1 Second degree perineal laceration during delivery; O99.214 Obesity complicating childbirth; E66.9 Obesity, unspecified; Z3A.39 39 weeks gestation of pregnancy
CPT/HCPCS: 36415; 59025; 59409; 85027; 86850; 86900; 86901; A9270-GY; J0290; J7030; J7050; J7120